=== PATIENT | female | born 1960 | race Caucasian/White ===

== ENCOUNTER 2017-10-02 13:17 | Emergency (ER) | END 2017-10-02 17:39 | disposition home or self-care (01) ==

== ENCOUNTER 2017-10-08 06:09 | Inpatient (IN) | END 2017-10-10 17:35 | disposition home or self-care (01) | DRG 737 ==

== ENCOUNTER 2018-01-03 08:03 | Inpatient (IN) | END 2018-01-06 10:00 | disposition still patient (30) | DRG 738 ==

== ENCOUNTER 2018-09-27 08:34 | Emergency (ER) | payer OTHER ==
[~2018-09-27] VITALS: Ht 144.8 cm; Wt 84.6 kg
[2018-09-27 08:47] VITALS: BP 123/75; PULSE 58; RESP 20; Ht 144.8 cm; Wt 84.6 kg
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
[2018-09-27] MEDS ORDERED: NAPR-985 PO (09:55)
[2018-09-27] MEDS ORDERED: IBUPROFEN 600 MG TAB PO ONE (10:00)
== END 2018-09-27 10:10 | disposition home or self-care (01) ==
LOC: FTE 08:34
DX: S63.501A Unspecified sprain of right wrist, initial encounter (principal); W01.0XXA Fall on same level from slipping, tripping and stumbling without subsequent striking against object, initial encounter; Y92.002 Bathroom of unspecified non-institutional (private) residence as the place of occurrence of the external cause
CPT/HCPCS: 29125; 73130; Z7502; Z7610